=== PATIENT | female | born 1995 | race Caucasian/White ===

== ENCOUNTER 2019-09-16 11:42 | Inpatient (IN) ==
[2019-09-16] MEDS ORDERED: Lidocaine 1% 20 ML MDV INFILT PRN (11:59)
[2019-09-16] MEDS ORDERED: Metoclopramide 10 MG/2 ML VIAL IVP PRN (11:59)
[2019-09-16] MEDS ORDERED: miSOPROStoL 25 MCG TABLET PO PRN (11:59)
[2019-09-16] MEDS ORDERED: Naloxone 0.4 MG/ML INJ IVP PRN (11:59)
[2019-09-16] MEDS ORDERED: Famotidine 20 MG/2 ML VIAL IVP PRN (11:59)
[2019-09-16] MEDS ORDERED: Oxytocin 20 units/ LR 1000 mL 20 UNIT/1,000 ML BAG IVC SCH (12:00)
[2019-09-16] MEDS ORDERED: Penicillin G Potassium 5,000,000 UNIT in 0.9 % Sodium Chloride Mini Bag 100 ML IVPB ONE (12:01)
[2019-09-16 12:29] LABS: Basophils # 0.1 K/mcL (0.0-0.2); Basophils % 0.8 %; Eosinophils # 0.1 K/mcL (0.0-0.6); Eosinophils % 0.8 %; Hematocrit 35.6 % (35.3-44.9); Hemoglobin 12.2 g/dL (11.5-15.4); Immature Granulocytes % 0.5 % (0-4); Lymphocytes # 1.8 K/mcL (0.6-4.6); Lymphocytes % 17.6 %; Mean Corpuscular HGB Conc 34.3 g/dL (31.6-35.5); Mean Corpuscular Hemoglobin 28.9 pg (28.0-33.3); Mean Corpuscular Volume 84.4 fL (83.0-100.0); Mean Platelet Volume 10.5 fL (9.4-12.4); Monocytes # 0.9 K/mcL (0.0-1.3); Monocytes % 8.6 %; Neutrophils # 7.2 K/mcL (1.6-8.9); Platelet Count 452 K/mcL (140-400); Red Blood Count 4.22 M/mcL (3.82-4.97); Red Cell Distribution Width 12.7 % (11.5-14.5); Segmented Neutrophils % 71.7 %
[2019-09-16] MEDS: Ringers Solution, Lactated 1,000 ML IVC SCH ×2 (12:37→14:22)
[2019-09-16 12:41] LABS: Amphetamine Screen,Urine Negative ng/mL (Cutoff=1000); Barbiturate Screen,Urine Negative ng/mL (Cutoff=200); Benzodiazepines Screen,Urine Negative ng/mL (Cutoff=200); Cannabinoid Screen,Urine Negative ng/mL (Cutoff = 50); Cocaine Screen,Urine Negative ng/mL (Cutoff= 300); Opiate Screen,Urine Negative ng/mL (Cutoff=300); Phencyclidine Screen,Urine Negative ng/mL (Cutoff=25)
[2019-09-16 12:49] LABS: Alanine Aminotransferase 8 Units/L (7-52); Aspartate Amino Transferase 12 Units/L (13-39); BUN/Creatinine Ratio 6 (6-26); Blood Urea Nitrogen 4 mg/dL (6-20); Lactate Dehydrogenase 151 Units/L (140-271); Uric Acid 4.1 mg/dL (2.3-7.6); eGFR For African Americans > 60 (> 60); eGFR For Non-African Americans > 60 (> 60)
[2019-09-16] MEDS ORDERED: Epidural Premix (fent/bupiv) 110 ML EP SCH (13:30)
[2019-09-16 15:44] LABS: Creatinine,Urine 27 mg/dL
[2019-09-16] MEDS ORDERED: Penicillin G Potassium 2,500,000 UNIT in 0.9 % Sodium Chloride 100 ML IVPB SCH (16:00)
[2019-09-16] MEDS: *HR* Nalbuphine 10 MG/ML AMPUL IVP PRN ×2 (16:19→18:52)
[2019-09-16] MEDS ORDERED: Lidocaine/EPI 1:200k 2% PF 20 ML VIAL ONE (21:28)
[2019-09-16] MEDS ORDERED: *HR* Ropivacaine/PF 0.5% 20 ML VIAL ONE (22:04)
[2019-09-16] MEDS ORDERED: *HR* Oxytocin 10 UNIT/ML VIAL IM ONE (22:14)
[2019-09-16] MEDS ORDERED: *HR* FentaNYL (PF) 100 MCG/2 ML VIAL ONE (22:17)
[2019-09-16] MEDS ORDERED: *HR* FentaNYL (PF) 250 MCG/5 ML VIAL ONE (22:19)
[2019-09-16] MEDS ORDERED: *HR* Morphine Sulfate/PF 10 MG/10 ML AMPUL ONE (22:24)
[2019-09-16] MEDS ORDERED: Ondansetron 4 MG/2 ML VIAL ONE (22:45)
[2019-09-16] MEDS ORDERED: Ondansetron 4 MG/2 ML VIAL IVP PRN (22:47)
[2019-09-16] MEDS ORDERED: Ibuprofen 400 MG TABLET PO PRN (22:47)
[2019-09-16] MEDS ORDERED: Acetaminophen IV 1,000 MG/100 ML INFUS..BTL IVPB ONE (22:47)
[2019-09-16] MEDS ORDERED: *HR* OxyCODONE/APAP 5/325 TABLET PO PRN (22:47)
[2019-09-16] MEDS ORDERED: Morphine Sulfate 2 MG/ML SYRINGE IVP PRN (22:47)
[2019-09-16] MEDS ORDERED: *HR* Succinylcholine 200 MG/10 ML VIAL IVP ONE (22:59)
[2019-09-16] MEDS ORDERED: Oxytocin 20 units/ LR 1000 mL 20 UNIT/1,000 ML BAG IVC ONE (23:15)
[2019-09-17] MEDS ORDERED: Ondansetron 4 MG/2 ML VIAL IVP PRN (00:48)
[2019-09-17] MEDS ORDERED: *HR* OxyCODONE/APAP 5/325 TABLET PO PRN (00:48)
[2019-09-17] MEDS ORDERED: Oxytocin 20 units/ LR 1000 mL 20 UNIT/1,000 ML BAG IVC SCH (00:48)
[2019-09-17] MEDS ORDERED: Acetaminophen 325 MG TABLET PO PRN (00:48)
[2019-09-17] MEDS ORDERED: Metoclopramide 10 MG/2 ML VIAL IVP PRN (00:48)
[2019-09-17] MEDS ORDERED: *HR* OxyCODONE Immed Rel 5 MG TABLET PO PRN (00:48)
[2019-09-17] MEDS ORDERED: Sennosides 8.6 MG TABLET PO PRN (00:48)
[2019-09-17] MEDS ORDERED: Rho Immune Globulin 1,500 UNIT SYRINGE IM ONE (00:48)
[2019-09-17] MEDS ORDERED: Simethicone 80 MG TAB.CHEW PO PRN (00:48)
[2019-09-17] MEDS: cephALEXin 500 MG CAPSULE PO SCH ×3 (08:54→20:28)
[2019-09-17] MEDS: Ibuprofen 600 MG TABLET PO PRN ×3 (08:54→23:49)
[2019-09-17] MEDS: metroNIDAZOLE 500 MG TABLET PO SCH ×3 (08:55→20:28)
[2019-09-17] MEDS ORDERED: Prenatal Vit/FA 1 EACH TABLET PO SCH (09:00)
[2019-09-17 20:56] LABS: Basophils # 0.1 K/mcL (0.0-0.2); Basophils % 0.5 %; Eosinophils # 0.1 K/mcL (0.0-0.6); Eosinophils % 0.7 %; Hematocrit 31.8 % (35.3-44.9); Immature Granulocytes % 0.5 % (0-4); Lymphocytes # 2.3 K/mcL (0.6-4.6); Lymphocytes % 15.8 %; Mean Corpuscular HGB Conc 33.3 g/dL (31.6-35.5); Mean Corpuscular Hemoglobin 28.9 pg (28.0-33.3); Mean Corpuscular Volume 86.6 fL (83.0-100.0); Monocytes # 1.4 K/mcL (0.0-1.3); Monocytes % 9.9 %; Neutrophils # 10.6 K/mcL (1.6-8.9); Platelet Count 383 K/mcL (140-400); Red Blood Count 3.67 M/mcL (3.82-4.97); Red Cell Distribution Width 12.9 % (11.5-14.5); Segmented Neutrophils % 72.6 %; White Blood Count 14.5 K/mcL (4.3-11.1)
[2019-09-17 20:57] LABS: Hemoglobin 10.6 g/dL (11.5-15.4)
[2019-09-18 07:43] VITALS: BP 138/88
[2019-09-18] MEDS: Ibuprofen 600 MG TABLET PO PRN (08:25)
[2019-09-18] MEDS: cephALEXin 500 MG CAPSULE PO SCH (08:25)
[2019-09-18] MEDS ORDERED: Etonogestrel 68 MG IMPLANT IL ONE (09:08)
[2019-09-18] MEDS ORDERED: Lidocaine/EPI 1:100k 1% 30 ML VIAL INFILT ONE (09:08)
[2019-09-18] MEDS: metroNIDAZOLE 500 MG TABLET PO SCH (11:07)
[2019-09-18] MEDS ORDERED: Benzocaine/Menthol 56 GM AEROSOL SPRAY TP ONE (11:10)
== END 2019-09-18 11:57 | disposition home or self-care (01) | DRG 540 ==
LOC: 1NENULAB 11:42 → 1NENUOBS 09-17 01:37
PROVIDERS: ADMIT Registered Nurse; ATTEND Registered Nurse